=== PATIENT | female | born 1955 | race Caucasian/White ===

== ENCOUNTER → 2017-02-02 | Outpatient (CLI) | payer MEDICARE, BC, OTHER ==
[~2017-02-02] MED LIST: ALLERGY SYRING1 EAC1 MC; BACTROBAN NASAL1 G1; BUPROPION HCL150 M1 PO; BUSPIRONE HCL7.5 MG PO; CARAFATE1 GM/10 ML PO; CYMBALTA60 MG PO; DOXYCYCLINE HY100 M2 PO; DULOXETINE HCL60 MG PO; FLEXERIL 10 MG10 MG PO; HABITROL 21 MG P1 EA TD; LEVOTHYROXINE125 MCG PO; LISINOPRIL20 MG PO; LORTAB 7.5-3251 EACH PO; NASONEX17 GM; NEURONTIN 300300 MG PO; NEURONTIN300 MG PO; NORCO 10-325 T1 EACH PO; NORVASC 5 MG TAB5 MG PO; PANTOPRAZOLE SO40 MG PO; QUETIAPINE FUMA50 MG PO; TRAZODONE HCL100 MG PO; TRAZODONE HCL50 MG PO; VITAMIN D250000 UNIT PO; WELCHOL 625 MG625 MG PO
== END ==
LOC: RAD 16:09
DX: M25.551 Pain in right hip (principal)
CPT/HCPCS: 73502

== ENCOUNTER → 2017-02-21 | Outpatient (CLI) | payer OTHER, BC, MEDICARE | LOC: LAB 12:55 → MRI 12:55 | DX: Q27.9 Congenital malformation of peripheral vascular system, unspecified (principal) | CPT/HCPCS: 36415; 70553; 82565; 84520; A9577 ==